=== PATIENT | male | born 1985 | race African-American/Black ===

== ENCOUNTER 2016-09-12 13:25 | Emergency (ER) | payer SELFPAY ==
[2016-09-12 13:39] VITALS: BP 100/67; PULSE 82; TEMP 98.6; BMI 27.1
--- NOTE | 2016-09-12 14:11 | PDOC ---
History of Present Illness - General History Source: Patient Exam Limitations: No Limitations - History of Present Illness Initial Comments: 09/12/16 14:49 The patient is a 30 year old male, with no significant past medical history, who presents to the emergency department complaining of a rash for approximately 1 week. The patient reports the rash initially began on his right leg. However, during the past couple of days the rash has spread to his back, right hand, and right arm. He describes the rash is itchy, but without painful blisters. He reports he may have acquired the rash at work due to poor sanitary conditions. The patient reports he has a young child at home, but denies she has experienced similar symptoms. He denies any rash or blisters in his mouth or on his feet. He denies any recent travel or sick contacts. Allergies: None reported Past Surgical History: None reported Social History: Current everyday smoker. Social ETOH use. No drug use. PCP: Dr. Suazo <Flor Ball - Last Filed: 09/12/16 14:49> <Sue Segovia - Last Filed: 09/12/16 15:07> - General Chief Complaint: Rash Stated Complaint: RASH Time Seen by Provider: 09/12/16 14:04 Past History <Flor Ball - Last Filed: 09/12/16 14:49> - Psycho/Social/Smoking Cessation Hx Anxiety: No Suicidal Ideation: No Smoking History: Current some day smoker Have you smoked in the past 12 months: Yes Number of Cigarettes Smoked Daily: 0 Information on smoking cessation initiated: Yes 'Breaking Loose' booklet given: 01/11/15 Hx Alcohol Use: Yes (OCCASIONAL) Drug/Substance Use Hx: No Substance Use Type: None <Sue Segovia - Last Filed: 09/12/16 15:07> - Past Medical History Allergies/Adverse Reactions: Allergies Allergy/AdvReac Type Severity Reaction Status Date / Time No Known Allergies Allergy Verified 09/12/16 13:35 Home Medications: Ambulatory Orders NK [No Known Home Medication] 01/11/15 Review of Systems - Review of Systems Able to Perform ROS?: Yes Comments:: 09/12/16 14:50 GENERAL/CONSTITUTIONAL: No fever or chills. No weakness. HEAD, EYES, EARS, NOSE AND THROAT: No change in vision. No ear pain or discharge. No sore throat. CARDIOVASCULAR: No chest pain or shortness of breath. RESPIRATORY: No cough, wheezing, or hemoptysis. GASTROINTESTINAL: No nausea, vomiting, diarrhea or constipation. GENITOURINARY: No dysuria, frequency, or change in urination. MUSCULOSKELETAL: No joint or muscle swelling or pain. No neck or back pain. SKIN: Yes: +rash to right leg, right arm, right hand, and back. NEUROLOGIC: No headache, vertigo, loss of consciousness, or change in strength/ sensation. ENDOCRINE: No increased thirst. No abnormal weight change. HEMATOLOGIC/LYMPHATIC: No anemia, easy bleeding, or history of blood clots. ALLERGIC/IMMUNOLOGIC: Yes: +rash <Sp Bally - Last Filed: 09/12/16 14:49> *Physical Exam - Vital Signs Last Vital Signs Temp Pulse Resp BP Pulse Ox 98.6 F 82 15 100/67 97 09/12/16 13:33 09/12/16 13:33 09/12/16 13:33 09/12/16 13:33 09/12/16 13:33 <Janeen Ballomilsy - Last Filed: 09/12/16 14:49> - Vital Signs Last Vital Signs Temp Pulse Resp BP Pulse Ox 98.6 F 82 15 100/67 97 09/12/16 13:33 09/12/16 13:33 09/12/16 13:33 09/12/16 13:33 09/12/16 13:33 - Physical Exam Comments: GENERAL: Awake, alert, and fully oriented, in no acute distress HEAD: No signs of trauma EYES: PERRLA, EOMI, sclera anicteric, conjunctiva clear ENT: Auricles normal inspection, hearing grossly normal, nares patent, oropharynx clear without exudates. Moist mucosa. No oral mucosal lesions. NECK: Normal ROM, supple, no lymphadenopathy, JVD, or masses EXTREMITIES: Normal range of motion, no edema. No clubbing or cyanosis. No cords , erythema, or tenderness NEUROLOGICAL: Cranial nerves II through XII grossly intact. Normal speech, normal gait SKIN: Warm, Dry, normal turgor. +Scattered nonerythematous papular rash over the trunk. Multiple excoriated areas. No lesions between the fingers. Two lesions to the R palm, not excoriated, non erythematous. <Sue Segovia - Last Filed: 09/12/16 15:07> Medical Decision Making - Medical Decision Making Etiology of the rash is unclear. Possibly a contact dermatitis, or possibly a viral exanthem. There are no concerning signs such as oral lesions or fever. They do not appear to be insect bites based on the distribution (they are mainly in covered areas of skin). Counseled him to take benadryl for itching, f/ u with PMD. If he develops fever, oral lesions, or it worsens, return to ED. <Sue Segovia - Last Filed: 09/12/16 15:07> *DC/Admit/Observation/Transfer - Attestations Scribe Attestion: 09/12/16 14:51 Documentation prepared by Flor Ball, acting as medical care administrator for Sue Segovia MD. <Flor Ball - Last Filed: 09/12/16 14:49> - Discharge Dispostion Admit: No <Sue Segovia - Last Filed: 09/12/16 15:07> Diagnosis at time of Disposition: Rash - Discharge Dispostion Disposition: HOME Condition at time of disposition: Stable - Referrals Referrals: Salomón Suazo MD [Primary Care Provider] - - Patient Instructions Printed Discharge Instructions: DI for Rash Additional Instructions: BENADRYL 25-50 MG EVERY 6 HOURS NEEDED FOR ITCHING. FOLLOW UP WITH YOUR PRIMARY CARE IN THE NEXT 2-3 DAYS. IF YOU DEVELOP FEVER, SORES IN YOUR MOUTH, OR ANY OTHER CONCERNING SYMPTOMS, RETURN TO THE ER IMMEDIATELY.
--- NOTE | 2016-09-13 16:20 | PDOC ---
*Physical Exam - Vital Signs Last Vital Signs Temp Pulse Resp BP Pulse Ox 98.6 F 82 15 100/67 97 09/12/16 13:33 09/12/16 13:33 09/12/16 13:33 09/12/16 13:33 09/12/16 13:33 Medical Decision Making - Medical Decision Making 09/13/16 16:19 Pt comes back stating that he needed a work note from yesterday. Will write him a letter given that he was seen yesterday. *DC/Admit/Observation/Transfer Diagnosis at time of Disposition: Rash - Discharge Dispostion Disposition: HOME Condition at time of disposition: Stable - Referrals Referrals: Salomón Suazo MD [Primary Care Provider] - - Patient Instructions Printed Discharge Instructions: DI for Rash Additional Instructions: BENADRYL 25-50 MG EVERY 6 HOURS NEEDED FOR ITCHING. FOLLOW UP WITH YOUR PRIMARY CARE IN THE NEXT 2-3 DAYS. IF YOU DEVELOP FEVER, SORES IN YOUR MOUTH, OR ANY OTHER CONCERNING SYMPTOMS, RETURN TO THE ER IMMEDIATELY. - Post Discharge Activity Work/School Note: Back to Work
== END 2016-09-12 14:18 | disposition home or self-care (01) ==
LOC: FER 13:25
DX: R21 Rash and other nonspecific skin eruption (principal)
CPT/HCPCS: 99281-25

== ENCOUNTER 2016-12-20 20:14 | Emergency (ER) | payer OTHER ==
[2016-12-20 20:21] VITALS: BP 122/80; PULSE 88; TEMP 98; BMI 27.7
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
[2016-12-20] MEDS ORDERED: IBUPROFEN 600 MG TABLET (FP) PO ONE ×2 (20:39→20:53)
== END 2016-12-20 21:15 | disposition home or self-care (01) ==
LOC: FER 20:14
DX: S66.912A Strain of unspecified muscle, fascia and tendon at wrist and hand level, left hand, initial encounter (principal); S39.012A Strain of muscle, fascia and tendon of lower back, initial encounter; V43.52XA Car driver injured in collision with other type car in traffic accident, initial encounter; Y93.89 Activity, other specified; Y92.410 Unspecified street and highway as the place of occurrence of the external cause
CPT/HCPCS: 99281-25